=== PATIENT | female | born 1950 | race African-American/Black ===

== ENCOUNTER → 2017-04-03 | Outpatient (CLI) | payer OTHER ==
[2005-12-15 10:40] VITALS: TEMP 96.9
[~2017-04-03] MED LIST: CARAFATE1 GM PO; LOTREL 10 MG-201 CAP PO; NEXIUM40 MG PO; SYNTHROID0.1 MG PO
== END ==
LOC: MC.RAD 07:40
DX: Z12.31 Encounter for screening mammogram for malignant neoplasm of breast (principal)

== ENCOUNTER → 2019-04-14 | Outpatient (CLI) | payer MEDICARE, OTHER ==
[~2019-04-14] MED LIST changes: +CARAFATE 1GM1 G PO; -CARAFATE1 GM PO; +CIPRO 500MG TA500 MG PO; +EFFEXOR XR37.5 MG/CA PO; +FLAGYL500 MG PO; +HCTZ 25MG TAB25 MG PO; +K-TAB20 PO; +LOTENSIN HCT 101 TAB PO; +NEXIUM 20MG20 MG PO; -NEXIUM40 MG PO; +NORCO 325 MG-51 TAB PO; +NORVASC 5MG5 MG/TAB PO; -SYNTHROID0.1 MG PO; +SYNTHROID0.112 MG/T PO; +VITAMIN D 1001000 IU PO; +WELLBUTRIN SR200 MG PO
== END ==
LOC: COL.RAD 08:03
DX: R11.0 Nausea (principal); R14.0 Abdominal distension (gaseous); R68.81 Early satiety
CPT/HCPCS: A9541

== ENCOUNTER 2021-11-23 07:18 | Day surgery (SDC) | payer MEDICARE ==
[2021-11-23] VITALS (78 sets, daily range): BP systolic 106–125; BP diastolic 72–86; PULSE 59–76; TEMP 97; O2SAT 90–100
[~2021-11-23] VITALS: Ht 172.7 cm; Wt 94.8 kg
[2021-11-23 08:36] LABS: HEMATOCRIT 40.5 % (37.0-47.0); HEMOGLOBIN 13.1 g/dl (12.5-16.0); MEAN CELL VOLUME 86 fl (80.0-100.0); MEAN CORPUSCULAR HEMOGLOBIN 28 pg (27-31); MEAN CORPUSCULAR HGB CONC 32 g/dl (33.0-37.0); MEAN PLATELET VOLUME 9.5 fl (7.4-10.4); PLATELET COUNT 434 K/mm3 (130-400); REDCELL DISTRIBUTION WIDTH-CV 14.6 % (11.5-14.5)
[2021-11-23 08:38] LABS: PROTHROMBIN TIME 11.2 SECONDS (9.7-12.8)
[2021-11-23 08:41] LABS: PARTIAL THROMBOPLASTIN TIME 30.6 SECONDS (26.0-37.0)
[2021-11-23 08:45] LABS: CALCIUM 9.7 mg/dL (8.4-10.2); CREATININE, serum 1.17 mg/dL (0.57-1.11); POTASSIUM 3.7 mmol/L (3.5-4.5)
[2021-11-23] MEDS ORDERED: PRIL40 PO (09:02)
--- NOTE | 2021-11-23 09:08 | NUR ---
PATIENT ALERT AND ORIENTED, NO REPORTS OF CHEST PAIN. PLEASE SEE MERGE FOR DOCUMENTATION, MEDICATION ADMINISTRATION AND VS DOCUMENTATION.
[2021-11-23] MEDS ORDERED: CALCIUM 600MG+D1 TAB PO (09:42)
[2021-11-23] MEDS ORDERED: NORVASC 5MG5 MG/TAB PO (09:43)
[2021-11-23] MEDS ORDERED: PROAIR HFA0.09 MG/AC IH (09:43)
--- NOTE | 2021-11-23 13:00 | NUR ---
All air released rom right radial band in 2-3 ml incriments.no bleeding observed at site.dressing of gauze and coban applied.
--- NOTE | 2021-11-23 13:45 | NUR ---
Discharge instructions given to pt.Pt verbalizes understanding.INT removed,catheter tip intact.Pt escorted out via wheelchair by this nurse.
== END 2021-11-23 14:55 ==
LOC: COL.CAR 07:18
PROVIDERS: Internal Medicine Cardiovascular Disease
DX: R94.39 Abnormal result of other cardiovascular function study (principal); R06.02 Shortness of breath; R53.83 Other fatigue; R07.89 Other chest pain; E78.5 Hyperlipidemia, unspecified; Z79.899 Other long term (current) drug therapy
CPT/HCPCS: C1769; J1644; J2250; J3010